=== PATIENT | male | born 1945 | race Caucasian/White ===

== ENCOUNTER 2017-09-30 08:38 | Day surgery (SDC) | payer MEDICARE, OTHER ==
[2017-09-30] MEDS ORDERED: Lactated Ringer's 1,000 ML IV ONE (08:59)
[2017-09-30] MEDS ORDERED: Propofol 10 mg/ml Inj (20 ML) ONE (11:00)
[2017-09-30] MEDS ORDERED: Lidocaine 2% MPF (5 ml) Inj ONE (11:00)
[2017-09-30 11:27] VITALS: TEMP 96.8; O2SAT 99
[2017-09-30 12:15] VITALS: BP 120/68; PULSE 42; RESP 14
== END 2017-09-30 14:46 | disposition home or self-care (01) ==
LOC: H.ENDO 08:38
PROVIDERS: ATTEND Internal Medicine Gastroenterology
DX: Z86.010 Personal history of colon polyps (principal); D12.5 Benign neoplasm of sigmoid colon; K64.8 Other hemorrhoids; K57.30 Diverticulosis of large intestine without perforation or abscess without bleeding; K57.92 Diverticulitis of intestine, part unspecified, without perforation or abscess without bleeding
CPT/HCPCS: 45380; 88305; J2704; J7120